=== PATIENT | male | born 1990 | race Caucasian/White ===

== ENCOUNTER 2017-03-08 09:28 | Emergency (ER) | payer OTHER ==
[~2017-03-08] VITALS: Ht 177.8 cm; Wt 97.6 kg
[2017-03-08 11:12] LABS: microscopic required? NO
[2017-03-08 11:24] LABS: BASOPHIL % 0.4 % (0-2); PLATELET COUNT 257 x10^3mcL (130-400); RED CELL DISTRIBUTION WIDTH 13.1 % (11.5-14.5)
[2017-03-08 11:25] LABS: UA SPECIFIC GRAVITY >=1.030 (1.005-1.035); urine erythrocyte NEGATIVE (NEGATIVE)
[2017-03-08 11:32] LABS: CALCIUM 8.9 mg/dL (8.5-10.1); CARBON DIOXIDE 30.2 mmol/L (21-32); CHLORIDE SERUM 105 mmol/L (98-107); GFR1 > 60 mL/min; GLUCOSE SERUM 99 mg/dL (74-106); POTASSIUM SERUM 4.6 mmol/L (3.5-5.1); SODIUM SERUM 141 mmol/L (136-145)
[2017-03-08 11:37] LABS: ALBUMIN 4.7 g/dL (3.4-5.0); ALKALINE PHOSPHATASE 81 U/L (46-116); ALT/SGPT 256 U/L (16-63); AST/SGOT 98 U/L (15-37); BILIRUBIN TOTAL 0.9 mg/dL (0.20-1.00); LIPASE 209 IU/L (73-393); MAGNESIUM 2.1 mg/dL (1.8-2.4)
[2017-03-08 13:18] VITALS: BP 142/74
== END 2017-03-08 13:22 | disposition home or self-care (01) ==
LOC: ED 09:28
PROVIDERS: Emergency Medicine
DX: R10.31 Right lower quadrant pain (principal); K76.0 Fatty (change of) liver, not elsewhere classified; F10.10 Alcohol abuse, uncomplicated; J30.9 Allergic rhinitis, unspecified; R03.0 Elevated blood-pressure reading, without diagnosis of hypertension

== ENCOUNTER 2017-07-13 10:30 | Emergency (ER) | payer OTHER ==
[2017-07-13 10:44] VITALS: BP 112/80
== END 2017-07-13 12:23 | disposition home or self-care (01) ==
LOC: ED 10:30
DX: B34.9 Viral infection, unspecified (principal)
CPT/HCPCS: J7613; J7644

== ENCOUNTER 2018-01-10 08:01 | Emergency (ER) | payer MEDICAID ==
[~2018-01-10] VITALS: Ht 177.8 cm; Wt 98.0 kg
[2018-01-10 08:11] VITALS: Ht 177.8 cm; Wt 98.0 kg
[2018-01-10 09:47] VITALS: BP 114/70
== END 2018-01-10 09:47 | disposition home or self-care (01) ==
LOC: ED 08:01
DX: J42 Unspecified chronic bronchitis (principal); M94.0 Chondrocostal junction syndrome [Tietze]

== ENCOUNTER 2018-10-12 14:30 | Emergency (ER) | payer MEDICAID ==
[~2018-10-12] VITALS: Ht 177.8 cm; Wt 98.9 kg
[2018-10-12 15:09] VITALS: Ht 177.8 cm; Wt 98.9 kg
[2018-10-12 17:17] VITALS: BP 107/69
== END 2018-10-12 16:35 | disposition home or self-care (01) ==
LOC: ED 14:30
DX: J06.9 Acute upper respiratory infection, unspecified (principal)